=== PATIENT | male | born 1965 | race African-American/Black ===

== ENCOUNTER → 2021-06-16 08:48 | Outpatient (CLI) | payer OTHER, SELFPAY ==
--- NOTE | ~2021-06-16 | US_ITS ---
EXAMINATION: US aorta DATE: 06/16/2021 15:00 FISHERIES SPECIALIST INDICATION: Tobacco use. Hypertension. Smoking. TECHNIQUE: Grayscale, color Doppler, and pulsed Doppler images of the aorta and common iliac arteries were obtained. COMPARISON: None. FINDINGS: The proximal aorta measures 2.4 cm greatest sagittal dimension. The mid aorta measures 2.4 cm greates t sagittal dimension. The distal aorta measures 1.9 cm greatest sagittal dimension. The right common internal iliac artery measures 1 cm. The left common iliac artery measures 1 cm greatest. IMPRESSION: 1. Normal caliber aorta without evidence for aneurysm. Reviewed, dictated and finalized at location A. ERIES SPECIALIST
== END ==
PROVIDERS: PCP Family Medicine; Visit Provider Family Medicine
DX: Z72.0 Tobacco use (principal)
CPT/HCPCS: 76775

== ENCOUNTER 2021-07-06 18:23 | Emergency (ER) | payer OTHER, SELFPAY ==
[2021-07-06 18:32] VITALS: BP 121/70; PULSE 84; RESP 16; TEMP 36.2; O2SAT 99
--- NOTE | 2021-07-06 23:13 | PC.NURSE ---
pt called twice no answer
== END 2021-07-07 05:27 | disposition left against medical advice (07) ==
DX: R10.30 Lower abdominal pain, unspecified (principal)
CPT/HCPCS: 99199

== ENCOUNTER → 2021-07-26 11:30 | Outpatient (CLI) | payer OTHER, SELFPAY ==
--- NOTE | ~2021-07-26 | US_ITS ---
EXAMINATION: US scrotum doppler DATE: 07/26/2021 12:10 INDICATION: Bilateral testicular pain. TECHNIQUE: Grayscale and Doppler ultrasound images of the testes were obtained. COMPARISON: None. FINDINGS: The right testis measures 3.7 x 1.6 x 2.7 cm. The left testis measures 3.6 x 1.6 x 2.0 cm. There is cystic dilatation of the rete testes on the left. There is normal vascular flow to both test es. The right epididymis is normal with normal vascular flow. The left epididymis demonstrates an 8 m m benign cyst. There is no hydrocele. There are bilateral varicoceles. IMPRESSION: 1. Bilateral varicoceles. Reviewed, dictated and finalized at location A. E AND WAGON DRIVER IMPRESSION: 1. Bilateral varicoceles.
== END ==
PROVIDERS: PCP Family Medicine
DX: R10.30 Lower abdominal pain, unspecified (principal); N50.82 Scrotal pain; I86.1 Scrotal varices
CPT/HCPCS: 76870; 93976

== ENCOUNTER 2025-03-17 21:43 | Emergency (ER) | payer OTHER, SELFPAY ==
--- NOTE | ~2025-03-17 | CT_ITS ---
EXAMINATION: CT diagnostic chest wo con DATE: 03/17/2025 23:00 INDICATION: Right posterior pleuritic chest pain TECHNIQUE: Computed tomography (CT) of the chest was performed without intravenous contrast. The dose-length product was 175.20 mGy-cm. Automated exposure control and iterative reconstruction technique were employed. COMPARISON: None FINDINGS: No significant pleural or pericardial effusion. No thoracic lymphadenopathy. Upper abdomen is unremarkable. Severe emphysema. Bullous changes at the lung apices. No endobronchial lesions. No focal airspace consolidation. There is dextroscoliosis of the lower thoracic spine. No focal consolidation. No suspicious pulmonary nodules or masses. Thorax. No acute osseous abnormality.. IMPRESSION: 1. No acute cardiopulmonary disease. Reviewed, dictated and finalized at location O.
[2025-03-17 21:47] VITALS: BP 114/79; PULSE 86; RESP 19; TEMP 37; O2SAT 98
--- NOTE | 2025-03-17 21:53 | ECG_ITS ---
Test Date: 2025-03-17 21:59:29 Measurements Intervals [place] Rate: 81 P: 69 NC: 170 QRS: 80 QRSD: 96 T: 75 QT: 388 QTc: 451 Interpretive Statements SINUS RHYTHM INCOMPLETE RIGHT BUNDLE BRANCH BLOCK BORDERLINE T WAVE ABNORMALITY- ANTEROLAT/INF LEADS BASELINE ARTIFACT- I, II, III, AVR, AVL, AVF, V1-V5 BORDERLINE ECG No previous ECG available for comparison Electronically Signed On 03-18-2025 06:39:35 CDT by Fortino Ayoub D.O.
[2025-03-17 22:06] LABS: Hematocrit 42.1 % (42.0-52.0); Hemoglobin 13.6 g/dL (14.0-18.0); Immature Granulocyte Percent A 0.3 % (0-0.5); Lymphocytes Absolute Auto 1.63 K/mm3 (0.9-3.2); Mean Corpuscular HGB Conc 32.3 g/dl (32-36); Mean Corpuscular Hemoglobin 29.8 pg (26-34); Mean Corpuscular Volume 92.3 fl (80-100); Nucleated Red Blood Cells Absolute Auto 0.000 K/mm3 (0.0-0.012); Nucleated Red Blood Cells Perc 0.0 % (0.0-0.2); Platelet Count Result 227 k/mm3 (150-375); Red Blood Count 4.56 M/mm3 (4.6-6.20); White Blood Count 10.8 K/mm3 (4.5-10.0)
[2025-03-17 22:20] VITALS: PULSE 70
[2025-03-17 22:20] LABS: Alanine Aminotransferase 20 U/L (6-50); Albumin Level 4.2 g/dL (3.5-5.1); Alkaline Phosphatase 49 U/L (38-126); Anion Gap 8 mmol/L (4-12); Aspartate Amino Transferase 27 U/L (17-59); Bilirubin,Total 0.5 mg/dL (0.2-1.3); Blood Urea Nitrogen 14 mg/dL (9-20); Calcium 9.5 mg/dL (8.4-10.2); Carbon Dioxide 26 mmol/L (22-30); Chloride 104 mmol/L (98-107); Estimated CRCL calculation 61 ml/min; Estimated Glomerular Filt Rate 56; Glucose 113 mg/dL (65-110); Potassium 4.0 mmol/L (3.4-5.0); Sodium 138 mmol/L (137-145); Total Protein 7.2 g/dL (6.3-8.2)
[2025-03-17 22:29] LABS: Troponin I < 0.012 ng/mL (0.000-0.034)
[2025-03-17 22:30] VITALS: BP 99/63; PULSE 80; RESP 19; O2SAT 97
[2025-03-17 22:39] VITALS: BP 94/69; PULSE 75; RESP 20; O2SAT 97
[2025-03-17 23:02] VITALS: BP 101/74; PULSE 78; RESP 25; O2SAT 98
[2025-03-17] MEDS: KETOROLAC 15 MG/ML VIAL (*BKC) IV PUSH (23:11)
[2025-03-17] MEDS: LACTATED RINGERS 1,000 ML 999 ML IV CONT (23:11)
[2025-03-17 23:31] VITALS: BP 104/74; PULSE 69; RESP 18
[2025-03-18 00:01] VITALS: BP 100/63; PULSE 80; RESP 20; O2SAT 98
[2025-03-18] MEDS: ACETAMINOPHEN 500 MG TABLET 1000 MG PO (00:05)
[2025-03-18 00:09] VITALS: PULSE 63; RESP 15
[2025-03-18] MEDS: IPRATROPIUM 0.5 MG/ALBUTEROL SULFATE 2.5 MG AMPUL.NEB 3 ML 6 ML INHALATION (00:09)
[2025-03-18 00:21] VITALS: PULSE 75; RESP 16
[2025-03-18 00:31] VITALS: BP 103/62; PULSE 64; RESP 21; O2SAT 99
[2025-03-18 01:00] VITALS: BP 109/77; PULSE 63; RESP 22; O2SAT 100
--- NOTE | 2025-03-18 01:16 | ED.GENADULT ---
HPI - General Adult General Chief complaint: Shortness of Breath/Dyspnea Stated complaint: SOB ON INSPIRATION, BACK & SCAPULAR PAIN Time Seen by Provider: 03/17/25 22:01 History of Present Illness HPI narrative: This is a 59-year-old male with history of emphysema presenting with right-sided pleuritic pain. Patient says that he woke up this morning and had a sharp pain near his scapula in his back. It is worse with deep respirations. He took some Tylenol with some relief. He went to work throughout the day and was able to manage but it got worse when he got home. He feels like he cannot take a deep breath. He does not have any fevers cough abdominal pain lower extremity edema history of DVT/PE or risk factors for PE. Patient states he has history of back spasms in the 20th thought was occurring. Related Data Home Medications ?Medication ?Instructions ?Recorded ?Confirmed ?Last Taken ?Type amlodipine 10 mg-benazepril 40 mg cap 03/17/25 03/17/25 01:00 History capsule Allergies Allergy/AdvReac Type Severity Reaction Status Date / Time No Known Allergies Allergy Verified 03/17/25 22:21 Exam Narrative: APPEARANCE: No apparent distress. Well-appearing, stable vitals Head: atraumatic. EYES: EOMI, NOSE: Atraumatic NECK: Trachea midline RESPIRATORY: No increased rate of breathing clear to auscultation CARDIOVASCULAR: RRR, no peripheral edema ABDOMINAL: Non-distended soft nontender MUSCULOSKELETAl: No obvious deformities no tenderness to palpation over the affected area on his back NEURO: Alert. Moving 4/4 extremities SKIN:: Warm, dry. Normal color PSYCHIATRIC: Normal affect Course Vital Signs Vital signs: Vital Signs Temperature 98.6 F 03/17/25 21:47 Pulse Rate 86 03/17/25 21:47 Respiratory Rate 19 03/17/25 21:47 Blood Pressure 114/79 03/17/25 21:47 Pulse Oximetry 98 03/17/25 21:47 Oxygen Delivery Room Air 03/17/25 21:47 Temperature 98.6 F 03/17/25 21:47 Pulse Rate 75 03/18/25 00:21 Respiratory Rate 16 03/18/25 00:21 Blood Pressure 114/79 03/17/25 21:47 Pulse Oximetry 98 03/17/25 21:47 Oxygen Delivery Room Air 03/17/25 21:47 Medical Decision Making [facility] Narrative Medical decision making narrative: -Course: 59-year-old male presenting with right-sided pleuritic pain. On physical exam he does not have any wheezing or tenderness over the area pain. His vital signs are stable and he is well appearing overall. His workup was largely unremarkable. EKG without ischemic changes. negative trop and symptoms >3hrs duration. D-dimer undetectable. Wells criteria is 0 and PE is very unlikely. Aortic dissection was considered but does not fit his clinical picture. Presentation not consistent pericarditis and no diffuse ST changes. CT chest without contrast showed emphysema without any infiltrates. Patient was treated with Toradol with mild improvement. He was then given a breathing treatment and a muscle relaxer which he said helped. At this time his presentation is most consistent pleurisy versus muscle spasm. Patient will be discharged with NSAIDs and muscle relaxers as well as an inhaler. He will call his primary care physician and follow-up with them as soon as possible. Given return precautions for worsening chest pain shortness of breath fevers or any new symptoms. -DDX includes but is not limited to: Pleurisy, PE, pneumonia, pericarditis, ACS, dissection, pneumothorax -Co-morbidities complicating care: Tobacco user, back spasms Vital Signs Vital Signs: Vital Signs Temperature 98.6 F 03/17/25 21:47 Pulse Rate 86 03/17/25 21:47 Respiratory Rate 19 03/17/25 21:47 Blood Pressure 114/79 03/17/25 21:47 Pulse Oximetry 98 03/17/25 21:47 Oxygen Delivery Room Air 03/17/25 21:47 Temperature 98.6 F 03/17/25 21:47 Pulse Rate 75 03/18/25 00:21 Respiratory Rate 16 03/18/25 00:21 Blood Pressure 114/79 03/17/25 21:47 Pulse Oximetry 98 03/17/25 21:47 Oxygen Delivery Room Air 03/17/25 21:47 Lab Data 03/17/25 21:59 03/17/25 21:59 Labs: Lab Results 03/17/25 Range/Units 21:59 WBC 10.8 H (4.5-10.0) K/mm3 RBC 4.56 L (4.6-6.20) M/mm3 Hgb 13.6 L (14.0-18.0) g/dL Hct 42.1 (42.0-52.0) % MCV 92.3 (80-100) fl MCH 29.8 (26-34) pg MCHC 32.3 (32-36) g/dl RDW 12.6 (11.5-14.5) % Plt Count 227 (150-375) k/mm3 MPV 8.9 (7.4-10.4) fl Immature Gran % (Auto) 0.3 (0-0.5) % Neut % (Auto) 73.6 H (45.5-73.1) % Lymph % (Auto) 15.1 L (18.3-44.2) % [place] % (Auto) 9.1 H (2.6-8.5) % Eos % (Auto) 1.4 (0-4.4) % Baso % (Auto) 0.5 (0.2-1.2) % Lymph # (Auto) 1.63 (0.9-3.2) K/mm3 [place] # (Auto) 1.0 H (0.1-0.6) K/mm3 Eos # (Auto) 0.2 (0-0.3) K/mm3 Baso # (Auto) 0.1 (0.0-0.1) K/mm3 Abs Immat Gran (auto) 0.03 (0.00-0.031) K/mm3 Absolute Neuts (auto) 7.9 H (1.3-6.7) K/mm3 Absolute Nucleated RBC 0.000 (0.0-0.012) K/mm3 Nucleated RBC % 0.0 (0.0-0.2) % D-Dimer < 0.27 (<0.48) ug/mL Sodium 138 (137-145) mmol/L Potassium 4.0 (3.4-5.0) mmol/L Chloride 104 (98-107) mmol/L Carbon Dioxide 26 (22-30) mmol/L Anion Gap 8 (4-12) mmol/L BUN 14 (9-20) mg/dL Creatinine 1.32 H (0.7-1.3) mg/dL Estim Creat Clear Calc 61 ml/min Estimated GFR 56 L (59 - ) Glucose 113 H (65-110) mg/dL Calcium 9.5 (8.4-10.2) mg/dL Total Bilirubin 0.5 (0.2-1.3) mg/dL AST 27 (17-59) U/L ALT 20 (6-50) U/L Alkaline Phosphatase 49 (38-126) U/L Troponin I < 0.012 (0.000-0.034) ng/mL Total Protein 7.2 (6.3-8.2) g/dL Albumin 4.2 (3.5-5.1) g/dL Discharge Plan Discharge Clinical Impression: Pleurisy Patient Disposition: Home Condition: Stable Instructions: Antibiotic Form, Pleurisy (DC) Additional Instructions: You were seen in the emergency department for pleuritic pain. This is likely due to pleurisy of your lung or a muscle spasm. Please use Motrin and Tylenol for pain and Robaxin for muscle spasms. You can also use an albuterol inhaler if you feel like you cannot take a deep breath. It is important that you follow-up closely with your primary care physician further evaluation and treatment of your symptoms. If her symptoms are getting worse, you develop worsening chest pain or shortness of breath I want you to return to emergency department immediately. Patient Language: Frisian Prescriptions: New acetaminophen 500 mg tablet 1,000 mg PO TID PRN (Reason: iwona) 7 Days Qty: 42 0RF ibuprofen 800 mg tablet 800 mg PO TID PRN (Reason: pain) 7 Days Qty: 21 0RF methocarbamol 750 mg tablet 1,500 mg PO TID Qty: 42 0RF albuterol sulfate [Ventolin HFA] 90 mcg/actuation HFA aerosol inhaler 1 inh inhalation QID PRN (Reason: shortness of breath or wheezing) Qty: 8.5 0RF No Action amlodipine-benazepril 10-40 mg capsule Follow-up/Referrals: Yajaira,Mariusz Gustafson MD [Primary Care Provider, Unknown]
--- NOTE | 2025-03-18 01:22 | ECG_ITS ---
Test Date: 2025-03-18 01:29:44 Measurements Intervals [place] Rate: 77 P: 53 [place]: 198 QRS: 75 QRSD: 93 T: 67 QT: 354 QTc: 403 Interpretive Statements SINUS RHYTHM INCOMPLETE RIGHT BUNDLE BRANCH BLOCK BASELINE ARTIFACT- I, III, AVR, AVL, AVF, V1-V3 BORDERLINE ECG Compared to ECG 03/17/2025 21:59:29 NO SIGNIFICANT CHANGE Electronically Signed On 03-18-2025 06:41:32 CDT by Fortino Ayoub D.O.
[2025-03-18 01:31] VITALS: BP 83/61; PULSE 83; RESP 24; O2SAT 99
[2025-03-18 02:16] LABS: Troponin I < 0.012 ng/mL (0.000-0.034)
== END 2025-03-18 01:56 | disposition home or self-care (01) ==
PROVIDERS: Emergency Provider Emergency Medicine; PCP Family Medicine
DX: R09.1 Pleurisy (principal); J43.9 Emphysema, unspecified; M62.830 Muscle spasm of back; Z72.0 Tobacco use; I45.10 Unspecified right bundle-branch block; R94.31 Abnormal electrocardiogram [ECG] [EKG]
CPT/HCPCS: 36415; 71045; 71250; 80053; 84484; 85025; 85380; 93005; 94640; 96372; 96374; 99284; A9270; J1885; J7120

== ENCOUNTER 2025-03-18 08:49 | Emergency (ER) | payer OTHER, SELFPAY ==
--- NOTE | ~2025-03-18 | XR_ITS ---
XR chest 1V portable 03/18/2025 09:19 Indication: Shortness of breath Procedure: AP portable chest Comparison: 03/28/2022 Findings: There is patchy right-sided airspace disease, compatible with pneumonia. Heart size normal. No pleural effusion or pneumothorax. Impression: 1: Patchy right-sided airspace disease, consistent with pneumonia. Reviewed, dictated and finalized at location O. Impression: 1: Patchy right-sided airspace disease, consistent with pneumonia.
[2025-03-18 08:58] VITALS: BP 119/81; PULSE 92; RESP 16; TEMP 36.6; O2SAT 100
--- NOTE | 2025-03-18 09:00 | ECG_ITS ---
Test Date: 2025-03-18 09:22:40 Measurements Intervals [place] Rate: 86 P: 44 [place]: 152 QRS: 78 QRSD: 98 T: 73 QT: 366 QTc: 440 Interpretive Statements SINUS RHYTHM INCOMPLETE RIGHT BUNDLE BRANCH BLOCK BASELINE ARTIFACT- I, III, AVR, AVL, AVF BORDERLINE ECG NONSPECIFIC ST & T-WAVE ABNORMALITY Compared to ECG 03/18/2025 01:29:44 NO SIGNIFICANT CHANGE Electronically Signed On 03-18-2025 09:54:02 CDT by Fortino Ayoub D.O.
--- NOTE | 2025-03-18 09:01 | ED.GENADULT ---
HPI - General Adult General Chief complaint: Extremity Injury, Upper Stated complaint: SOB History of Present Illness HPI narrative: 59-year-old male presents emergency department for evaluation for recurrent back pain. Patient was evaluated last night and diagnosed with pleurisy. Patient had a negative CT scan at that time. Patient reports that his pain began worsening this morning. Related Data Home Medications ?Medication ?Instructions ?Recorded ?Confirmed ?Last Taken ?Type amlodipine 10 mg-benazepril 40 mg cap 03/17/25 03/17/25 01:00 History capsule Allergies Allergy/AdvReac Type Severity Reaction Status Date / Time No Known Allergies Allergy Verified 03/18/25 07:33 Review of Systems Review of Systems: All systems reviewed & are unremarkable except as noted in HPI and below Exam Narrative: APPEARANCE: Well appearing, no pain, no distress, well-nourished. HEAD: normocephalic, atraumatic. EYES: PERRLA/EOMI, conjunctivae clear. NOSE: Normal no drainage EARS:TMS clear with good light reflex. THROAT: Pharynx clear, no exudate. NECK: Supple. No adenopathy, no masses. RESPIRATORY: Airway patent, respirations nonlabored. Clear to auscultation bilaterally, no rales, rhonchi, wheezing. CARDIOVASCULAR: Regular rate and rhythm without murmurs rubs or gallops. ABDOMINAL: Soft, nontender, nondistended, normal bowel sounds MUSCULOSKELETAL: Moves all extremities. Strength/ROM intact, No edema, No calf tenderness. NEURO: Alert. Cranial nerves II through XII intact. Good gait. Good coordination SKIN: Warm, dry. Normal Color Course Vital Signs Vital signs: Vital Signs Temperature 97.9 F 03/18/25 08:58 Pulse Rate 92 03/18/25 08:58 Respiratory Rate 16 03/18/25 08:58 Blood Pressure 119/81 03/18/25 08:58 Pulse Oximetry 100 03/18/25 08:58 Oxygen Delivery Room Air 03/18/25 08:58 Temperature 97.7 F 03/18/25 10:46 Pulse Rate 88 03/18/25 10:46 Respiratory Rate 16 03/18/25 10:46 Blood Pressure 118/74 03/18/25 10:46 Pulse Oximetry 100 03/18/25 10:46 Oxygen Delivery Room Air 03/18/25 08:58 Medical Decision Making MDM Narrative Medical decision making narrative: 59-year-old male presents emergency department for evaluation for recurrent pleuritic chest pain. Chest x-ray today does show concern for pneumonia compared to patient's CT scan that was skull acted last night. Patient did report episode of chills prior to arrival. Patient will be started on Augmentin and 80s the mycin for concern for underlying pneumonia. Patient family were updated on the results of the workup and plan to start him on antibiotic. All questions concerns were addressed patient was well-appearing at time of discharge. Differential Diagnosis Differential Diagnosis: Pleurisy, pneumonia, emphysema, COPD, anxiety Vital Signs Vital Signs: Vital Signs Temperature 97.9 F 03/18/25 08:58 Pulse Rate 92 03/18/25 08:58 Respiratory Rate 16 03/18/25 08:58 Blood Pressure 119/81 03/18/25 08:58 Pulse Oximetry 100 03/18/25 08:58 Oxygen Delivery Room Air 03/18/25 08:58 Temperature 97.7 F 03/18/25 10:46 Pulse Rate 88 03/18/25 10:46 Respiratory Rate 16 03/18/25 10:46 Blood Pressure 118/74 03/18/25 10:46 Pulse Oximetry 100 03/18/25 10:46 Oxygen Delivery Room Air 03/18/25 08:58 Lab Data Lab results reviewed: Yes I reviewed the patient's lab results. Imaging Data Radiologist's impression: Impressions Chest X-Ray 03/18/25 09:22 Impression: 1: Patchy right-sided airspace disease, consistent with pneumonia. ECG Data EKG #1: EKG Interpretation: normal rate, sinus rhythm, no ectopy, non-specific ST changes, RBBB and no acute changes Discharge Plan Discharge Clinical Impression: Pleurisy, Pneumonia Patient Disposition: Home Condition: Stable Instructions: Antibiotic Form Additional Instructions: Continue your previously prescribed medications. You are also being started on Augmentin and azithromycin for potential pneumonia. Have close follow-up with your primary care physician. If you have any worsening symptoms then please call or return to the emergency department. Patient Language: Greenlandic Prescriptions: New azithromycin 250 mg tablet See Rx Instructions .ROUTE .COMPLEX Qty: 6 0RF Rx Instructions: For 250 mg dose pack: take 500 mg today (day 1), then 250 mg for 4 days (days 2-5) amoxicillin-pot clavulanate 875-125 mg tablet 1 tablet PO Q12H 7 Days Qty: 14 0RF No Action amlodipine-benazepril 10-40 mg capsule acetaminophen 500 mg tablet 1,000 mg PO TID PRN (Reason: iwona) 7 Days Qty: 42 0RF ibuprofen 800 mg tablet 800 mg PO TID PRN (Reason: pain) 7 Days Qty: 21 0RF methocarbamol 750 mg tablet 1,500 mg PO TID Qty: 42 0RF albuterol sulfate [Ventolin HFA] 90 mcg/actuation HFA aerosol inhaler 1 inh inhalation QID PRN (Reason: shortness of breath or wheezing) Qty: 8.5 0RF Follow-up/Referrals: Yajaira,Mariusz Gustafson MD [Primary Care Provider, Unknown]
--- OUTSIDE RECORDS SUMMARY | 2025-03-18 09:10 | XMS_ITS | Encounter Summary ---
Author Organization [facility] Address [address] 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 Gender Identity Not on file Sexual Orientation Not on file documented as of this encounter Plan of Treatment Upcoming Encounters Date Type Department Care Team (Late st Contact Info) Description 04/11/2025 8:20 AM CDT Office Visit [facility] Urology at the [facility] Medicine [address] [place] [address] Cruz Cisneros MD [address] [place] [address] documented as of this encounter Visit Diagnoses Not on filedocumented in this encounter Care Teams Seed Analysis Laboratory Assistant Relationship Specialty Start Date End Date Mariusz Gates DO PCP - General Family Practice 09/18/20 documented as of this encounter
--- OUTSIDE RECORDS SUMMARY | 2025-03-18 09:10 | XMS_ITS | Clinical Summary ---
Author Organization [facility] Address [address] [place] [phone] Phone Care Team Providers Care Group Home Worker Name Role Phone Mariusz Gates DO Primary Care Provider [phone] Allergies Active Allergy Reactions Criticality Noted Date Comments Banana Hives High 01/16/2013 Varenicline Nausea and Vomiting Low 02/18/2014 Medications omeprazole (PriLOSEC) 20 mg Capsule, Delayed Release(E.C.) Take 20 mg by mouth every other day. Active amLODIPine-benaz epril (LOTREL) 10-40 mg capsule TAKE 1 CAPSULE DAILY 90 Capsule 3 0 Active HYDROcodone-acet aminophen (NORCO) 5-325 mg tabletIndication s:Benign prostatic hyperplasia with urinary frequency Take 1 Tablet by mouth every 6 hours as needed for severe Pain. Max Daily Amount: 4 Tablets 20 Tablet 01/21/2020 12:56 PM CDT 0 Active triamcinolone acetonide (KENALOG) 0.1 % Cream Apply twice daily left arm. 45 Gram 1 0 Active albuterol HFA 90 mcg inhaler USE 2 INHALATIONS EVERY 6 HOURS NEEDED FOR SHORTNESS OF BREATH 8.5 Gram 0 Active oxybutynin chloride (DITROPAN XL) 10 mg Extended Release 24 hour tablet TAKE 1 TABLET DAILY 90 Tablet 3 2 Active sildenafiL, pulm.hypertensio n, (REVATIO) 20 mg Tablet Take 1-5 tablets as needed 1 to 2 hours before intimacy. 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 Tobacco abuse 08/25/2014 Erectile dysfunction 08/25/2014 HTN (hypertension) 12/23/2013 Hyperlipidemia 01/11/2013 Hypertriglyceridemia 01/11/2013 GERD (gastroesophageal reflux disease) Asthma Overview (01/25/2014): PROVENTIL works better than Ventolin Encounters Date Type Department Care Team Description 02/02/2025 External Device Data ST[facility] ABSTRACTION Provider, Abstract 02/01/2025 External Device Data [facility] ABSTRACTION Provider, Abstract 01/04/2025 External Device Data [facility] ABSTRACTION Provider, Abstract from Last 3 Months Immunizations Immunization Administration Dates Next Due (ADACEL/BOOSTRIX)(10 YR UP) TDAP VACCINE, 0.5ML, IM 04/01/2016 (PNEUMOVAX 23)(50 YRS UP) PN EUMOCOCCAL POLYSACCHARIDE (PPV23) 0.5 ML, IM 05/26/2018 INFLUENZA VACCINE QUADRIVALENT 3 YR UP PF IM 06/2016 INFLUENZA VACCINE QUADRIVALENT 6 MOS UP PF IM Influenza Seasonal Unspecified Formulation IM Family History Medical History Relation Name Comments Seizures Daughter Unknown Father Hypertension Maternal Uncle Lung Cancer Mother smoker Thyroid Disease Mother Unknown Paternal Grandfather Unknown Paternal Grandmother Asthma Son Colon Cancer Neg Hx Relation Name Status Comments Daughter Alive Father Maternal Grandfather Maternal Grandmother Alive Maternal Uncle Mother Paternal Grandfather Paternal Grandmother Sister Alive Son Alive Social History Tobacco Use Types Packs/Day Years Used Date Smoking Tobacco: Every Day Cigarettes 0.5 37.6 Started: 08/25/1987 Smokeless Tobacco: Never Tobacco Cessation:Ready to Q uit: Not Asked; Counseling Given: Yes Alcohol Use Standard Drinks/Week Comments Yes 0 (1 standard drink = 0.6 oz pur e alcohol) Rare Sex and Gender Information Value Date Recorded Sex Assigned at Not on file 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 Gender Identity Not on file Sexual Orientation Not on file Occupation Industry Job Start Date Job End Date [employer] Not on file Not on file Not on file Last Filed Vital Signs Vital Sign Reading Time Taken Comments Blood Pressure 118/78 03/03/2024 9:03 AM CDT Pulse 91 02/02/2020 9:18 AM CDT Temperature 36.8 C (98.2 F) 02/02/2020 9:18 AM CDT Respiratory Rate 18 03/03/2024 9:03 AM CDT Oxygen Saturation 99% 02/02/2020 9:18 AM CDT Inhaled Oxygen Concentration - - Weight 80.3 kg (177 lb) 03/03/2024 9:03 AM CDT Height 185.4 cm (6' 1) 02/26/2023 9:20 AM CDT Body Mass Index 23.35 02/26/2023 9:20 AM CDT Plan of Treatment Upcoming Encounters Date Type Department Care Team (Late st Contact Info) Description 04/11/2025 8:20 AM CDT Office Visit [facility] Urology at the [facility] Medicine [address] [place] [address] Cruz Cisneros MD [address] [place] [address] Health Maintenance Due Date Last Done Comments HEPATITIS B VACCINES (1 of 3 - 19+ 3-dose series) 1984 FIT-DNA Q 3 years 2010 FIT/FOBT Q 1 year 2010 Flex Sig/CT Colonography Q 5 years 2010 ZOSTER VACCINE (1 of 2) 12/27/2015 INFLUENZA VACCINE (#1) 2025 , 05/27/2019, 04/01/2016, Additional history exists DTAP/TDAP/TD VACCINES (2 - T d or Tdap) 04/01/2026 04/01/2016 COLORECTAL SCREENING 11/30/2031 11/29/2021, 05/13/20 16 Colorectal Cancer Screening 11/30/2031 Medical Devices Implanted Type Area Table Games Dual Rate Supervisor Device Identifier Shelf Expiration Date Model / Serial / Lot Imp Prostate Urolift [id number] - [id number] Implanted:Qty: 4 on 01/21/2020 by Cruz Cisneros MD at [facility] Other N/A: Prostate NEOTRACT 04/06/2021 [id number] / / [id number] Imp Prostate Urolift [id number] - [id number] Implanted:Qty: 1 on 01/21/2020 by Cruz Cisneros MD at [facility] Other N/A: Prostate NEOTRACT 03/23/2021 [id number] / / [id number] Insurance RX EXPRESS SCRIP[employer] Express [facility] CHOICE [id number] [facility] CHOICE [id number] Advance Directives For more information, please contact: [phone] * Full Code (Latest Code Status on File) Date Activated Date Inactivated Comments 01/21/2020 11:52 AM 01/21/2020 3:54 PM * Full Code Date Activated Date Inactivated Comments 01/21/2020 9:20 AM 01/21/2020 11:52 AM * Full Code Date Activated Date Inactivated Comments 01/21/2020 8:30 AM 01/21/2020 9:20 AM * Full Code Date Activated Date Inactivated Comments 01/21/2020 8:29 AM 01/21/2020 8:30 AM * Full Code Date Activated Date Inactivated Comments 05/13/2016 8:09 AM 05/13/2016 11:53 AM Care Teams Group Home Worker Relationship Specialty Start Date End Date Mariusz Gates DO PCP - General Family Practice 09/18/20
--- OUTSIDE RECORDS SUMMARY | 2025-03-18 09:10 | XMS_ITS | Clinical Summary ---
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 TAKE 1 TO 2 HOURS BEFORRE INTIMACY. DO NOT TAKE MORE THAN 5 TABLETS A DAY. 12/18/19 24 Active ergocalciferol (VITAMIN D) 50,000 unit capsuleIndicatio ns:Vitamin D deficiency TAKE 1 CAPSULE BY MOUTH ONCE A WEEK 16 capsule 1 05/20/20 24 Active gabapentin (NEURONTIN) 300 mg capsuleIndicatio ns:Neuropathic Pain Take 1 capsule (300 mg total) by mouth 3 (three) times a day 90 capsule 11 06/09/20 24 025 Active albuterol HFA (PROVENTIL HFA,VENTOLIN HFA,PROAIR HFA) 90 mcg/actuation inhalerIndicatio ns:Moderate persistent asthma without complication INHALE 2 PUFFS BY MOUTH EVERY 6 HOURS NEEDED FOR WHEEZING 25.5 g 3 02/01/20 25 Active traZODone (DESYREL) 50 mg tabletIndication s:Primary insomnia Take 1 tablet (50 mg total) by mouth nightly as needed for sleep 30 tablet 1 02/05/20 25 025 Active amLODIPine-benaz epriL (LOTREL) 10-40 mg per capsule TAKE 1 CAPSULE BY MOUTH DAILY 90 capsule 1 03/07/20 25 Active oxyBUTYnin XL (DITROPAN-XL) 10 mg 24 hr tablet TAKE 1 TABLET(10 MG) BY MOUTH DAILY 90 tablet 1 03/07/20 25 Active amLODIPine-benaz epriL (LOTREL) 10-40 mg per capsule TAKE 1 CAPSULE BY MOUTH DAILY 90 capsule 12/21/19 25 025 Discontinued oxyBUTYnin XL (DITROPAN-XL) 10 mg 24 hr tablet TAKE 1 TABLET(10 MG) BY MOUTH DAILY 90 tablet 12/21/19 25 025 Discontinued Active Problems Problem Noted Date Diagnosed Date Special screening for malignant neoplasms, colon 10/05/2021 Overview (10/05/2021): Added automatically from request for surgery [id number] Low vitamin D level 05/18/2021 Asthma 08/25/2020 Overview (08/25/2020): PROVENTIL works better than Ventolin GERD (gastroesophageal reflux disease) IFG (impaired fasting glucose) 08/25/2020 Benign prostatic hyperplasia with urinary freque ncy 09/14/2018 Overview (08/25/2020): 07/2019 - Prostate Biopsy with benign tissue Camptodactyly of right hand 04/25/2017 Erectile dysfunction 08/25/2014 Tobacco abuse 08/25/2014 HTN (hypertension) 12/23/2013 Hyperlipidemia 01/11/2013 Encounters Date Type Department Care Team Description 02/20/2025 7:00 AM CDT - 02/20/2025 11:59 PM CDT Hospital Encounter [place] [id number] [place] [address] Personal history of nicotine dependence Discharge Disposition: Discharge to home or self care 02/07/2025 Telephone [facility] [address] [place] [phone] Mariusz Gates, work note 02/06/2025 Results Follow-Up [facility] [address] [place] [phone] Mariusz Gates DO PSA screen, CBC with auto differential, Comprehensive metabolic panel, Additional followed-up results: 9 02/04/2025 9:00 AM CDT Lab [facility] [address] [place] [id number] Annual physical exam; Mixed hyperlipidemia; IFG (impaired fasting glucose); Gastroesophageal reflux disease without esophagitis; Low vitamin D level 02/04/2025 8:15 AM CDT Office Visit [facility] [address] [place] [phone] Mariusz Gates, Annual physical exam (Primary Dx); Primary hypertension; Mixed hyperlipidemia; IFG (impaired fasting glucose); Gastroesophageal reflux disease without esophagitis; Erectile dysfunction due to arterial insufficiency; Benign prostatic hyperplasia with urinary frequency; Low vitamin D level; Tobacco abuse; Moderate persistent asthma without complication; Primary insomnia; Personal history of nicotine dependence from Last 3 Months Immunizations Immunization Administration Dates Next Due Influenza, Quadrivalent, Spl it, Preservative Free, Intramuscular 05/18/2021,05/27/2019,04/01/2016 Influenza, Trivalent, IM (MDV) 06/22/2014 Pneumococcal Conjugate Pcv20 02/03/2024 Pneumococcal Polysaccharide PPV23 05/26/2018 Tdap 04/01/2016 Surgical History Surgery Date Site/Laterality Comments APPENDECTOMY WISDOM TOOTH EXTRACTION 1 left Medical History Medical History Date Comments Asthma Enlarged prostate GERD (gastroesophageal reflux disease) Family History Medical History Relation Name Comments Lung cancer Mother Relation Name Status Comments Father (Age 66) Mother (Age 69) Social History Tobacco Use Types Packs/Day Years Used Date Smoking Tobacco: Every Day Cigarettes 1 25 Smokeless Tobacco: Never Tobacco Cessation:Ready to Q uit: Not Asked; Counseling Given: Not Answered AUDIT-C Answer Date Recorded Q1: How often do you have a drink containing alc ohol? 2-4 times a month 11/29/2021 Q2: How many drinks containi ng alcohol do you have on a typical day when you are drinking? 1 or 2 11/29/2021 Q3: How often do you have si x or more drinks on one occasion? Never 11/29/2021 PHQ-2 Answer Date Recorded PHQ-2 Total Score (If total score is 3 or more points, staff should administer the PHQ-9) 0 02/04/2025 Sex and Gender Information Value Date Recorded Sex Assigned at Not on file Legal Sex Male 12:58 PM ADMITTANCE ATTENDANT Gender Identity Male 08/25/2020 4:22 AM ADMITTANCE ATTENDANT Sexual Orientation Straight 08/25/2020 4: 22 AM ADMITTANCE ATTENDANT Obstetrics History Last Filed Vital Signs Vital Sign Reading Time Taken Comments Blood Pressure 100/60 02/04/2025 8:09 AM CDT Pulse 85 02/04/2025 8:09 AM CDT Temperature 36.2 C (97.1 F) 02/04/2025 8:09 AM CDT Respiratory Rate 18 02/04/2025 8:09 AM CDT Oxygen Saturation 98% 02/04/2025 8:09 AM CDT Inhaled Oxygen Concentration - - Weight 85 kg (187 lb 8 oz) 02/04/2025 8:09 AM CD T Height 185.4 cm (6' 1) 02/04/2025 8:09 AM CDT Body Mass Index 24.74 02/04/2025 8:09 AM CDT Plan of Treatment Health Maintenance Due Date Last Done Comments Zoster Vaccine (1 of 2) 12/27/2015 Covid-19 Vaccine (2023-2 5 season) 2024 02/21/2022, 06/08/2021, 09/29/2020, Additional history exists Influenza Vaccine (#1) 2025 , 05/27/2019, 04/01/2016, Additional history exists Lung Cancer Screening 08/19/2025 02/20/2025 Depression Screening 02/04/2026 02/04/2025, 02/03/2024, 09/16/2022, Additional history exists Regular Well Visit/Exam 18-64 02/04/2026, 02/03/2024, 09/16/2022, Additional history exists DTaP/Tdap/Td Vaccine (2 - Td or Tdap) 04/01/2026 04/01/2016 Prostate Cancer Screening-PSA 02/04/2027, 02/03/2024, 10/07/2020 Colon Cancer Screening-Colonoscopy 11/30/20312021 Hepatitis C Screening Completed 02/03/2024 Pneumococcal vaccine <65 Completed 02/03/2024, 11/0 12/2017 Hepatitis B Screening Completed 02/04/2025 Procedures Procedure Name Priority Date/Time Associated Diagnosis Comments CT LUNG CANCER SCREENING Schedule Routine, Read Routine (OP Routine) 02/20/2025 7:20 AM CDT Personal history of nicotine dependence EGFR Routine 02/04/2025 9:11 AM CDT Annual physical exam Mixed hyperlipidemia IFG (impaired fasting glucose) Gastroesophageal reflux disease without esophagitis Low vitamin D level DIFFERENTIAL AUTO Routine 02/04/2025 9:1 1 AM CDT Annual physical exam Mixed hyperlipidemia IFG (impaired fasting glucose) Gastroesophageal reflux disease without esophagitis Low vitamin D level HEMOGLOBIN A1C Routine 02/04/2025 9:11 AM CDT Annual physical exam Mixed hyperlipidemia IFG (impaired fasting glucose) Gastroesophageal reflux disease without esophagitis Low vitamin D level TSH Routine 02/04/2025 9:11 AM CDT Annual physical exam Mixed hyperlipidemia IFG (impaired fasting glucose) Gastroesophageal reflux disease without esophagitis Low vitamin D level LIPID PANEL Routine 02/04/2025 9:11 AM CDT Annual physical exam Mixed hyperlipidemia IFG (impaired fasting glucose) Gastroesophageal reflux disease without esophagitis Low vitamin D level COMPREHENSIVE METABOLIC PANEL Routine 02/04/2025 9:11 AM CDT Annual physical exam Mixed hyperlipidemia IFG (impaired fasting glucose) Gastroesophageal reflux disease without esophagitis Low vitamin D level CBC WITH AUTO DIFFERENTIAL Routine 02/04/2025 9:11 AM CDT Annual physical exam Mixed hyperlipidemia IFG (impaired fasting glucose) Gastroesophageal reflux disease without esophagitis Low vitamin D level PSA SCREEN Routine 02/04/2025 9:11 AM CDT Annual physical exam HEPATITIS B SURFACE ANTIGEN Routine 02/04/2025 9:11 AM CDT Annual physical exam Mixed hyperlipidemia IFG (impaired fasting glucose) Gastroesophageal reflux disease without esophagitis Low vitamin D level HEPATITIS B CORE ANTIBODY, TOTAL Routine 02/04/2025 9:11 AM CDT Annual physical exam Mixed hyperlipidemia IFG (impaired fasting glucose) Gastroesophageal reflux disease without esophagitis Low vitamin D level HEPATITIS B SURFACE ANTIBODY (IMMUNE STATUS) Routine 02/04/2025 9:11 AM CDT Annual physical exam Mixed hyperlipidemia IFG (impaired fasting glucose) Gastroesophageal reflux disease without esophagitis Low vitamin D level HEPATITIS C ANTIBODY Routine 02/03/2024 8:19 AM CDT Annual physical exam Primary hypertension Mixed hyperlipidemia IFG (impaired fasting glucose) Low vitamin D level Erectile dysfunction due to arterial insufficiency Benign prostatic hyperplasia with urinary frequency Moderate persistent asthma without complication Tobacco abuse Bilateral hand numbness COLONOSCOPY Routine 11/29/2021 from Last 3 Months or Most Recently Relevant to Health Maintenance Results * CT Lung Cancer Screening (02/20/2025 7:20 AM CDT) Anatomical Region Laterality Modality Chest N/A Computed Tomogra phy 03/01/2025 3:23 PM CDT Narrative 03/01/2025 3:32 PM CDT EXAM DESCRIPTION: CT LUNG CANCER SCREENING REASON FOR STUDY: Screening CT of the chest in a current smoker with a 38 pack year smoking history. Additional history: None. TECHNIQUE: Low dose CT scan of the chest was performed without intravenous contrast using helical scanning technique. The exam extends from the lung apices through the lung bases. Automatic exposure control was used as a dose optimization technique. NOTE: This study was performed for the specific purposes of lung cancer screening and is not an alternative to diagnostic chest CT. RADIATION DOSE: CT dose index volume (CTDIvol) = 2.89 mGy COMPARISON: None FINDINGS: SMOKING RELATED LUNG DISEASE: There is severe emphysematous change which is most pronounced in the lung apices. LUNG NODULES: There is a 4.5 mm pleural-based nodule between the right upper and middle lobes (image 181). A 2nd nodule along the pleura between the right upper and middle lobes (image 192) measures 4 mm. A 4 mm pleural-based nodule seen medially in the right middle lobe (image 255) is present. There is a 4 mm pleural-based right lower lobe nodule (image 199). A 2nd pleural-based nodule in the right lower lobe measures 4 mm (image 263). There is pair of nodules measuring up to 1 cm oblong nodule between the left upper and lower lobes (image 182). There is a 4 mm subpleural left lower lobe nodule (image 247). CORONARY ARTERY CALCIFICATION: None seen OTHER: The heart is overall normal in size. No suspicious mediastinal or hilar lymphadenopathy is present. No pneumothorax or pleural effusion is seen. IMPRESSION: 1. Multiple pulmonary nodules with the largest measuring 1 cm. Lung-RADS category 3: Probably benign. Recommendation: Low dose CT of chest in 6 months. THIS IS AN ELECTRONICALLY VERIFIED FINAL REPORT 03/01/2025 3:32 PM - Electronically signed by Arnol Simpson M.D. BS: DOROTHY Report ID: [id number] Reading Location: [place] [address] Procedure Note Arnol Simpson MD - 03/01/2025 EXAM DESCRIPTION: CT LUNG CANCER SCREENING REASON FOR STUDY: Screening CT of the chest in a current smoker with a38 pack year smoking history. Additional history: None. TECHNIQUE: Low dose CT scan of the chest was performed without intravenous contrast using helical scanning technique. The exam extends from the lung apices through the lung bases. Automatic exposure control was used as adose optimization technique. NOTE: This study was performed for the specific purposes of lung cancer screening and is not an alternative to diagnostic chest CT. RADIATION DOSE: CT dose index volume (CTDIvol) = 2.89 mGy COMPARISON: None FINDINGS: SMOKING RELATED LUNG DISEASE: There is severe emphysematouschange which is most pronounced in the lung apices. LUNG NODULES: There is a 4.5 mm pleural-based nodule between the rightupper and middle lobes (image 181). A 2nd nodule along the pleura between the right upper and middle lobes (image 192) measures 4 mm. A 4 mmpleural-based nodule seen medially in the right middle lobe (image 255) is present.There is a 4 mm pleural-based right lower lobe nodule (image 199). A 2nd pleural-based nodule in the right lower lobe measures 4 mm (image 263).There is pair of nodules measuring up to 1 cm oblong nodule between the leftupper and lower lobes (image 182). There is a 4 mm subpleural left lower lobe nodule (image 247). CORONARY ARTERY CALCIFICATION: None seen OTHER: The heart is overall normal in size. No suspicious mediastinalor hilar lymphadenopathy is present. No pneumothorax or pleural effusion is seen. IMPRESSION: 1. Multiple pulmonary nodules with the largest measuring 1cm. Lung-RADS category 3: Probably benign. Recommendation: Low dose CT of chest in 6 months. THIS IS AN ELECTRONICALLY VERIFIED FINAL REPORT 03/01/2025 3:32 PM - Electronically signed by Arnol Simpson M.D. BS: BS Report ID: [id number] Reading Location: [place] [address] Mariusz Gates DO [facility] [place] Final Result * eGFR (02/04/2025 9:11 AM CDT) eGFR >90 >=60 mL/min/1. 73 m2 Comment: Interpretive Data Reference Interval Normal >/= 90 mL/min/1.73m2 Mildly decreased* 60 - 89 mL/min/1.73m2 Mildly to moderately decreased 45 - 59 mL/min/1.73m2 Moderately to severely decreased 30 - 44 mL/min/1.73m2 Severely decreased 15 - 29 mL/min/1.73m2 Kidney Failure < 15 mL/min/1.73m2 *Relative to young adult level Estimated glomerular filtration rate is determined by the 2020 CKD-EPI equation recommended by the National Kidney Foundation (A Unifying Approach to GFR Estimation: Recommendations of the NKF-ASK Task Force on Reassessing the Inclusion of Race in Diagnosing Kidney Disease, JASN 2020). The CKD-EPI equation should not be used for patients with unstable renal function and has not been validated in children and those over 70. Current interpretive data was last reviewed 2021. Testing performed by: [address] [address] Blood 02/04/2025 9:11 AM CDT 02/04/2025 10:22 AM CDT Mariusz Gates DO LAB BLOOD ORDERABLES Fin al Result BUD [address] [facility] [place] [address] * Differential, auto (02/04/2025 9:11 AM CDT) Neutrophil abs 3.17 1.50 - 6.50 K/cumm Comment:Testing performed by : [address] [address] Imm gran abs 0.02 0.00 - 0.10 K/cumm BUD Comment:Testing performed by : [address] [address] Lymphocyte abs 1.99 0.80 - 3.30 K/cumm BUD Comment:Testing performed by : [address] [address] Monocyte abs 0.49 0.20 - 0.80 K/cumm BUD Comment:Testing performed by : [address] [address] Eosinophil abs 0.24 0.00 - 0.50 K/cumm BUD Comment:Testing performed by : [address] [address] Basophil abs 0.06 0.00 - 0.10 K/cumm BUD Comment:Testing performed by : [address] [address] Neutrophil pct 53.2 % BUD Comment: Interpretive Data Percent cell count reference ranges are not reported, since discordance with absolute values may lead to misinterpretation of CBC data. Current Interpretive Data was last revised on 2017. Testing performed by: [address] [address] Imm gran pct 0.3 % [facility] Comment: Interpretive Data Percent cell count reference ranges are not reported, since discordance with absolute values may lead to misinterpretation of CBC data. Current Interpretive Data was last revised on 2017. Testing performed by: [address] [address] Lymphocyte pct 33.3 % [facility] Comment: Interpretive Data Percent cell count reference ranges are not reported, since discordance with absolute values may lead to misinterpretation of CBC data. Current Interpretive Data was last revised on 2017. Testing performed by: [address] [address] Monocyte pct 8.2 % [facility] Comment: Interpretive Data Percent cell count reference ranges are not reported, since discordance with absolute values may lead to misinterpretation of CBC data. Current Interpretive Data was last revised on 2017. Testing performed by: [address] [address] Eosinophil pct 4.0 % [facility] Comment: Interpretive Data Percent cell count reference ranges are not reported, since discordance with absolute values may lead to misinterpretation of CBC data. Current Interpretive Data was last revised on 2017. Testing performed by: [address] [address] Basophil pct 1.0 % [facility] Comment: Interpretive Data Percent cell count reference ranges are not reported, since discordance with absolute values may lead to misinterpretation of CBC data. Current Interpretive Data was last revised on 2017. Testing performed by: [address] [address] Blood 02/04/2025 9:11 AM CDT 02/04/2025 9:40 AM CDT us Mariusz Gates DO LAB BLOOD ORDERABLES Fin al Result [facility] [address] [facility] [place] [address] * PSA screen (02/04/2025 9:11 AM CDT) PSA-Total 0.86 <=3.90 ng/mL Comment: Interpretive Data AGE SEX REFERENCE INTERVAL 0 minutes-150 years Female None 0 minutes-49 years Male None 50-59 years Male 0-3.90 60-69 years Male 0-5.40 70-79 years Male 0-6.20 80-150 years Male 0-6.20 The Delio PSA Total assay procedure was used. Results from different manufacturers or methods may not be comparable. Serial testing should be performed using the same method. Current interpretive data last revised 21. Testing performed by: [address] [address] Blood 02/04/2025 9:11 AM CDT 02/04/2025 10:22 AM CDT Mariusz Gates DO LAB BLOOD ORDERABLES Fin al Result [facility]UD [facility] [place] [address] * CBC with auto differential (02/04/2025 9:11 AM CDT) Pathologist [facility] WBC 5.97 3.80 - 9.90 K/cumm Comment:Testing performed by : [address] [address] Hgb 14.1 13.0 - 17.5 g/dL BUD Comment:Testing performed by : [address] [address] Hct 43.0 38.9 - 50.3 % BUD Comment:Testing performed by : [address] [address] Plt 246 150 - 400 K/cumm BUD SHAH Comment:Testing performed by : [address] [address] MPV 9.3 9.1 - 12.3 fL BUD SHAH Comment:Testing performed by : [address] [address] RBC 4.72 4.30 - 5.80 M/cumm BUD SHAH Comment:Testing performed by : [address] [address] MCV 91.1 81.3 - 96.4 fL BUD Comment:Testing performed by : [address] [address] MCH 29.9 27.1 - 33.3 pg BUD SHAH Comment:Testing performed by : [address] [address] MCHC 32.8 32.3 - 35.7 g/dL BUD SHAH Comment:Testing performed by : [address], [address] RDW CV 11.9 11.1 - 14.9 % BUD Comment:Testing performed by : [address], [address] RDW SD 39.7 35.7 - 48.1 fL BUD Comment:Testing performed by : [address] [address] NRBC abs 0.00 0.00 - 0.01 K/cumm BUD Comment:Testing performed by : [address], [address] Blood 02/04/2025 9:11 AM CDT 02/04/2025 9:40 AM CDT Mariusz Gates DO LAB BLOOD ORDERABLES Fin al Result [facility] [address] [facility] [place] [address] * Hepatitis B core antibody, total Blood (02/04/2025 9:11 AM CDT) Hep B core IgG/IgM Nonreactive Nonreactive Comment:Testing performed by : [facility], [address] [facility], [place]., [address] Blood 02/04/2025 9:11 AM CDT 02/04/2025 3:21 PM CDT Mariusz Dee [facility] LAB MICROBIOLOGY - GENER AL ORDERABLES Final Result Performing Organization Address [facility] de Phone Number BUD [facility] [address] * Hepatitis B surface antibody (immune status) Blood (02/04/2025 9:11 AM CDT) HBsAb (immune status) Nonreactive Comment: Interpretive Data Nonreactive: This result is consistent with a lack of immunity to Hepatitis B Virus when used in the setting of routine screening. Equivocal: The immune status of the individual should be further assessed, if appropriate, after consideration of clinical status, risk factors, and additional diagnostic information. Reactive: This result is consistent with immunity to Hepatitis B Virus when used in the setting of routine screening. Current interpretive data was last revised on 19. Blood 02/04/2025 9:11 AM CDT 02/04/2025 12:21 PM CDT Mariusz Dee Gates LAB MICROBIOLOGY - GENER AL ORDERABLES Final Result Performing Organization Address [facility] de Phone Number [place] [phone] [facility] [place] [address] * Hepatitis B Surface Antigen Blood (02/04/2025 9:11 AM CDT) HepBsAg Nonreactive Nonreactive Blood 02/04/2025 9:11 AM CDT 02/04/2025 12:21 PM CDT Mariusz [facility] LAB MICROBIOLOGY - GENER AL ORDERABLES Final Result Performing Organization Address [facility] Co de Phone Number [place] [phone] [facility] [address] * TSH (02/04/2025 9:11 AM CDT) Thyroid Stimulating Hormone 1.40 0.30 - 4.20 mcIUnit/mL Comment:Testing performed by : [address] [address] Blood 02/04/2025 9:11 AM CDT 02/04/2025 10:22 AM CDT Mariusz Gates DO LAB BLOOD ORDERABLES Fin al Result Performing Organization Address [facility] de Phone Number [address] [address] * (ABNORMAL) Hemoglobin A1c (02/04/2025 9:11 AM CDT) Hgb A1C 5.7(H) 4.0 - 5.6 % Comment:Testing performed by : [address] [address] Estimated Average Glucose 117 mg/dL BUD Comment: The ADA recommends reporting an estimated Average Glucose (eAG) with all Hemoglobin A1c results using the equation derived from a study of 507 normal and diabetic adults. Minority populations were underrepresented and children were not included. (Diabetes Care 31:7372-7412, 2008). The eAG is not equivalent to a fasting glucose. Testing performed by: [address] [address] Blood 02/04/2025 9:11 AM CDT 02/04/2025 9:40 AM CDT Mariusz Gates DO LAB BLOOD ORDERABLES Fin al Result Performing Organization Address [facility] de Phone Number [place] [phone] [place] [address] * (ABNORMAL) Lipid panel (02/04/2025 9:11 AM CDT) Cholesterol 151 30 - 199 mg/dL Comment: Interpretive Data Ages < or = 19 years Acceptable: <170 mg/dL Borderline high: 170-199 mg/dL High: >or= 200 mg/dL Ages > or = 20 years Desirable: <200 mg/dL Borderline high: 200-239 mg/dL High: >or= 240 mg/dL Literature References: 1. Expert Panel on Integrated Guidelines for Cardiovascular Health and Risk Reduction in Children and Adolescents. Pediatrics 2011;128:S213 2. NCEP Expert Panel. Circulation 2004;110:227 Current Interpretive Data was last revised on 2018. Testing performed by: [address] [address] Triglycerides 94 <=149 mg/dL BUD Comment: Interpretive Data Ages < or = 9 years Acceptable: <75 mg/dL Borderline high: 75-99 mg/dL High: >or= 100 mg/dL Ages 10 to 20 years Acceptable: <90 mg/dL Borderline high: 90-129 mg/dL High: >or= 130 mg/dL Ages > or = 20 years Desirable: <150 mg/dL Borderline high: 150-199 mg/dL High: 200-499 mg/dL Very high: >or= 499 mg/dL Literature References: 1. Expert Panel on Integrated Guidelines for Cardiovascular Health and Risk Reduction in Children and Adolescents. Pediatrics 2011;128:S213 2. NCEP Expert Panel. Circulation 2004;110:227 Current Interpretive Data was last revised on 2018. Testing performed by: [address] [address] HDL 36(L) >=40 mg/dL BUD Comment: Interpretive Data Ages < or = 19 years Acceptable: >45 mg/dL Borderline low: 40-45 mg/dL Low: <40 mg/dL Ages > or = 20 years Desirable: >or= 60 mg/dL Low: <40 mg/dL Literature References: 1. Expert Panel on Integrated Guidelines for Cardiovascular Health and Risk Reduction in Children and Adolescents. Pediatrics 2011;128:S213 2. NCEP Expert Panel. Circulation 2004;110:227 Current Interpretive Data was last revised on 2018. Testing performed by: [address] [address] LDL, calculated 97 <=129 mg/dL BUD Comment: Interpretive Data Ages < or = 19 years Acceptable: <110 mg/dL Borderline high: 110-129 mg/dL High: >or= 130 mg/dL Ages > or = 20 years Optimal: <100 mg/dL Near optimal: 100-129 mg/dL Borderline high: 130-159 mg/dL High: >160 mg/dL Calculated using the Frankie LDL-C estimating equation. This equation was implemented on 2024. Prior to this date LDL-C was estimated using the Friedewald equation. Literature References: 1. Expert Panel on Integrated Guidelines for Cardiovascular Health and Risk Reduction in Children and Adolescents. Pediatrics 2011;128:S213 2. NCEP Expert Panel. Circulation 2004;110:227 3. Frankie Lorenzana et al. VICKY Cardiol. 2019November 18;5(5):540-548. doi: 10.1001/[email or web address].2020.0013 Current Interpretive Data was last revised on 2024. Testing performed by: [address] [address] Non-HDL Cholesterol 115 mg/dL BUD SHAH Comment: Interpretive Data Ages < or = 19 years Acceptable: <120 mg/dL Borderline high: 120-144 mg/dL High: >145 mg/dL Ages > or = 20 years When triglycerides are >200 mg/dL, Non-HDL cholesterol is a secondary target of therapy with treatment goals that are 30 mg/dL greater than the LDL cholesterol target. Literature References: 1. Expert Panel on Integrated Guidelines for Cardiovascular Health and Risk Reduction in Children and Adolescents. Pediatrics 2011;128:S213 2. NCEP Expert Panel. Circulation 2004;110:227 Current Interpretive Data was last revised on 2018. Testing performed by: [address] [address] Chol/HDL ratio 4 BUD SHAH Comment:Testing performed by : [address] [address] Blood 02/04/2025 9:11 AM CDT 02/04/2025 10:22 AM CDT us Mariusz Gates DO LAB BLOOD ORDERABLES Fin al Result [facility]UD SHAH [address] [facility] Department of Laboratories [place], [place] [id number] * Comprehensive metabolic panel (02/04/2025 9:11 AM CDT) Sodium 138 135 - 145 mmol/L Comment:Testing performed by : [facility], [address] [place] [address], [place]., [address] Potassium, pl 4.0 3.3 - 4.9 mmol/L BUD Comment:Testing performed by : [facility], [address] [place] [address], [place]., [address] Chloride 105 97 - 110 mmol/L BUD Comment:Testing performed by : [address], [place]., [address] CO2 25 22 - 32 mmol/L [facility]ADRIANA Comment:Testing performed by : [address], [place]., [address] Anion gap 8 2 - 15 mmol/L BUD Comment:Testing performed by : [address], [place]., [address] BUN 12 6 - 25 mg/dL [facility] Comment:Testing performed by : [address], [place]., [address] Creatinine 0.90 0.80 - 1.30 mg/dL [facility] Comment:Testing performed by : [address], [place]., [address] Glucose 100 70 - 199 mg/dL [facility] Comment: Interpretive Data Fasting glucose >/= 126 mg/dl is diagnostic for diabetes. Fasting is defined as no caloric intake for at least 8 hours. Fasting glucose between 100 mg/dl to 125 mg/dl is diagnostic of prediabetes. In a patient with classic symptoms of hyperglycemia or hyperglycemic crisis, a random glucose >/= 200 mg/dl is diagnostic for diabetes. In the absence of unequivocal hyperglycemia, results should be confirmed by repeat testing. The classification and Diagnosis of Diabetes Diabetes Care 2021; 46: S19-S40. Current interpretive data was last revised 2022. Testing performed by: [address] [address] Calcium 9.3 8.5 - 10.3 mg/dL BUD Comment:Testing performed by : [address], [place]., [address] Bilirubin, total 0.5 0.1 - 1.2 mg/dL BUD Comment:Testing performed by : [address], [place]., [address] Protein, pl 7.1 6.5 - 8.5 g/dL BUD Comment:Testing performed by : [address] [address] Albumin 4.3 3.5 - 5.0 g/dL BUD Comment:Testing performed by : [address] [address] Alk phos 52 40 - 130 Units/L BUD Comment:Testing performed by : [address] [address] ALT 17 7 - 55 Units/L BUD Comment:Testing performed by : [address] [address] AST 18 10 - 50 Units/L BUD Comment:Testing performed by : [address] [address] Blood 02/04/2025 9:11 AM CDT 02/04/2025 10:22 AM CDT Mariusz Gates DO LAB BLOOD ORDERABLES [facility] al Result [facility] [address] [facility] Department of Laboratories [place], [place] [id number] * Hepatitis C antibody Blood (02/03/2024 8:19 AM CDT) Hep C Ab Nonreactive Nonreactive Comment: Antibodies to HCV not detected. Does NOT exclude the possibility of recent exposure to HCV. Current interpretive data was last revised on 22 Interpretive Data Nonreactive: Antibodies to HCV not detected. Does NOT exclude the possibility of recent exposure to HCV. Equivocal: Equivocal for HCV antibodies. Supplemental molecular testing will be automatically performed to determine infection status in accordance with current CDC screening recommendations. Reactive: Positive for HCV antibodies. This may represent current or past HCV infection. Supplemental molecular testing will be automatically performed to determine current infection status in accordance with current CDC screening recommendations. Interpretive data was last revised on 2019. Blood 02/03/2024 8:19 AM CDT 02/03/2024 12:46 PM CDT Mariusz Gates DO LAB MICROBIOLOGY - GENER AL ORDERABLES Final Result [facility]UD [address] [facility] [place] [address] * Colonoscopy (11/29/2021) Anatomical Region Laterality Modality Other Historical Provider MD ENDOSCOPY PROCEDURES Mindy l Result from Last 3 Months or Most Recently Relevant to Health Maintenance Insurance [facility] Address: [address] [address] [place] [address] [facility] Address: [address] [address] [place] [address] Care Teams Chassis Mechanic Relationship Specialty Start Date End Date Mariusz Gates DO [address] [address] PCP - General Family Medicine 07/17/20
[2025-03-18] MEDS: KETOROLAC 30 MG/ML VIAL (*BKC) IM (09:20)
[2025-03-18 10:00] VITALS: BP 120/74; PULSE 90; RESP 18; TEMP 36.6; O2SAT 99
[2025-03-18] MEDS: AZITHROMYCIN 250 MG TABLET 500 MG PO (10:35)
[2025-03-18 10:46] VITALS: BP 118/74; PULSE 88; RESP 16; TEMP 36.5; O2SAT 100
== END 2025-03-18 10:48 | disposition home or self-care (01) ==
PROVIDERS: Emergency Provider Emergency Medicine; PCP Family Medicine
DX: J18.9 Pneumonia, unspecified organism (principal); R09.1 Pleurisy; I45.10 Unspecified right bundle-branch block; R94.31 Abnormal electrocardiogram [ECG] [EKG]
CPT/HCPCS: 71045; 93005; 96372; 99283; A9270; J1885